=== PATIENT | male | born 1965 | race Caucasian/White ===

== ENCOUNTER 2017-09-13 11:36 | Emergency (ER) | payer OTHER ==
--- NOTE | 2017-09-13 12:55 | UC ---
Back Pain HPI - HPI Summary HPI Summary: Patient presents with complaints of severe right sided low back pain onset several days. He denies any injury or trauma. He states describes the pain as excruciating and radiates into the rectum with associated urinary urgency and almost incontinence. He denies any fever,chills, trauma, activity that might account for his pain. He denies constipation, dysuria, abnormal penile discharge. He does report recurrent cyst on the left testicle with some discomfort noted. He states he had a cyst removed in the past and thinks it is growing back. - History of Current Complaint Chief Complaint: UCBackPain Stated Complaint: BACK PAIN Time Seen by Provider: 09/13/17 12:32 Hx Obtained From: Patient Onset/Duration: Sudden Onset, Lasting Days Timing: Constant Severity Initially: Severe Severity Currently: Severe Back Pain: Is Discrete @ - right lower back. Character: Sharp, Throbbing Aggravating Factor(s): Movement, Lifting, Bending, Walking, Cough Alleviating Factor(s): Nothing Associated Signs And Symptoms: Positive: Bladder Incontinence Related History: Similar Episode Dx As - threw back out. - Risk Factors AAA Risk Factors: Negative TAD Risk Factors: Negative Cauda Equina Risk Factors: Bladder Dysfunction Epidural Abscess Risk Factors: Negative - Allergies/Home Medications Allergies/Adverse Reactions: Allergies Allergy/AdvReac Type Severity Reaction Status Date / Time No Known Allergies Allergy Verified 09/13/17 11:59 Home Medications: Home Medications NK [No Home Medications Reported] 09/13/17 [History Confirmed 09/13/17] PMH/Surg Hx/FS Hx/Imm Hx Previously Healthy: Yes - Surgical History Surgical History: Yes Surgery Procedure, Year, and Place: Hernia repair, back surgery - Family History Known Family History: Positive: None - Social History Occupation: Employed Full-time Alcohol Use: None Substance Use Type: None Smoking Status (MU): Heavy Every Day Tobacco Smoker Review of Systems Constitutional: Negative Skin: Negative Eyes: Negative ENT: Negative Respiratory: Negative Cardiovascular: Negative Gastrointestinal: Negative Genitourinary: Negative Motor: Negative Neurovascular: Negative Musculoskeletal: Other: Neurological: Negative Psychological: Negative All Other Systems Reviewed And Are Negative: Yes Physical Exam Triage Information Reviewed: Yes Appearance: Well-Appearing Vital Signs: Initial Vital Signs Temp 97.5 F 09/13/17 11:54 Pulse 65 09/13/17 11:54 Resp 18 09/13/17 11:54 Pulse Ox 100 09/13/17 11:54 Vital Signs Reviewed: Yes Eye Exam: Normal ENT Exam: Normal Dental Exam: Normal Neck exam: Normal Neck: Positive: 1 Respiratory Exam: Normal Cardiovascular Exam: Normal Abdominal Exam: Normal Musculoskeletal Exam: Normal Musculoskeletal: Positive: Other: - Back inspection, vertebrae are in good alignment with no step-offs or deformities. nontender midline on palpation. palpable pain to right of lumbar paraspinal processes. rom, guarded but without limitations. neuro, no deficits distally to touch. strength, equal bilaterally. 2+. vasc, no edema Posterior tib pulses 1+ bilaterally. patellar reflexes intact 2+. gait, heel-toe Neurological Exam: Normal Psychological Exam: Normal Skin Exam: Normal Back Pain Course/Dx - Course Course Of Treatment: Patient was referred to the ER stat. He was neuro-vasc intact while in the clinic. He preferred transfer in private vehicle. Report called to Yaneli that the patient would be arriving. - Differential Dx/Diagnosis Differential Diagnosis/HQI/PQRI: Other - back pain Provider Diagnoses: back pain Discharge - Discharge Plan Condition: Stable Disposition: HOME Patient Education Materials: Acute Low Back Pain (ED) Referrals: Javid Ortiz MD [Primary Care Provider] -
== END 2017-09-13 12:54 | disposition home or self-care (01) ==
LOC: UCEAST 11:36
DX: M54.5 Low back pain (principal); Z72.0 Tobacco use
CPT/HCPCS: 81003; 99211; G0463

== ENCOUNTER → 2017-09-13 13:15 | Emergency (ER) | payer OTHER ==
[~2017-09-13 13:15] MED LIST: Cyclobenzaprine TAB* 10 MG PO ONE; Dexamethasone IV* 4 MG/ML 1 ML (4 MG) IV SLOW PU ONE; Dexamethasone IV* 4 MG/ML 1 ML (4 MG) ONE; Dexamethasone IV* 8 MG in NS 0.9% 50 ML* 50 ML IVPB ONE; Iohexol 300* (CONTRAST) 10 ML SDV IV ONE; Morphine INJ* 10 MG/ML 1 ML CARPUJECT IV ONE; NS 0.9% 50 ML* 50 ML ONE
[2017-09-13 14:18] LABS: Hematocrit 47 % (42-52); Hemoglobin 15.6 g/dl (14.0-18.0); Mean Corpuscular HGB Conc 34 g/dl (31-36); Mean Corpuscular Hemoglobin 33 pg (27-31); Mean Corpuscular Volume 98 fL (80-94); Mean Platelet Volume 8 um3 (7.4-10.4); Red Blood Count 4.72 10^6/ul (4.0-5.4); Red Cell Distribution Width 14 % (10.5-15)
[2017-09-13 14:35] LABS: Albumin 4.2 g/dL (3.2-5.2); BUN/Creatinine Ratio 17.2 (8-20); C Reactive Protein 1.78 mg/L (< 5.00); Calcium 8.9 mg/dL (8.6-10.3); EGFR African American 102.9 (>60); Globulin 2.5 g/dL (2-4); Total Bilirubin 0.4 mg/dL (0.2-1.0); Total Protein 6.7 g/dL (6.4-8.9)
[2017-09-13 14:57] LABS: Erythrocyte Sed Rate 6 mm/Hr (0-20)
[2017-09-13 15:25] LABS: Potassium 4.5 mmol/L (3.5-5.0)
--- NOTE | 2017-09-13 15:34 | RAD ---
INDICATION: Low back pain. COMPARISON: There are no prior studies available for comparison. TECHNIQUE: Axial and sagittal T1 and T2 and coronal T2-weighted images of the lumbar spine were obtained. FINDINGS: The vertebra are in normal alignment. No fracture is seen. There is a small T1 and T2 hyperintense lesion in the L4 vertebral body measuring 7 mm in size most consistent with a small hemangioma. The conus medullaris is normal in shape and signal intensity. At the L2-L3 level there is a mild broad-based disc bulge. No significant spinal canal narrowing is present. There is very minimal bilateral neural foraminal narrowing. At the L3-L4 level there is no evidence for disc bulge or herniation. There are mild hypertrophic changes within the facet joints. No spinal canal or neural foraminal narrowing is seen. At the L4-L5 level there is a mild broad-based disc bulge and mild hypertrophic changes within the facet joints. No significant spinal canal or neural foraminal narrowing is seen. At the L5-S1 level there is a mild broad-based disc bulge and mild to moderate hypertrophic changes within the facet joints. No significant spinal canal narrowing is present. There is mild neural foraminal narrowing on the left side. IMPRESSION: MILD DEGENERATIVE DISC DISEASE AND FACET OSTEOARTHRITIS.
--- NOTE | 2017-09-13 18:39 | RAD ---
INDICATION: RIGHT lower back pain for 1.5 weeks. Previous hernia repair. COMPARISON: September 13, 2017 MRI. TECHNIQUE: Multidetector CT images were obtained from the lung bases to the ischial tuberosities with 111 mL Omnipaque 300 IV and oral contrast. Multiplanar reformation. REPORT: Mild bilateral dependent subsegmental atelectasis. Decreased density of normal size liver consistent with fatty infiltration. The gallbladder, pancreas, and spleen are unremarkable. Moderate hiatal hernia. No CT abnormality of the small bowel loops or retrocecal infra cecal appendix. Moderate colonic diverticulosis without findings of acute diverticulitis. Enteric contrast extends to the rectum. Negative for ascites, free air, or hernias. Normal adrenal glands. Subcentimeter probable cortical cyst at the upper pole of the RIGHT kidney. No suspicious renal lesions or hydronephrosis. Symmetric nephrograms and pyelograms. Unremarkable nondilated ureters and partially distended urinary bladder. Symmetric seminal vesicles. Negative for lymphadenopathy. Atherosclerotic plaque of normal diameter abdominal aorta and iliac arteries. Physiologic distention of the IVC. Negative for fracture or suspicious osseous lesions. Mild multilevel degenerative spondylosis as described in the MRI report of the same date. IMPRESSION: 1. Normal appendix documented. Colonic diverticulosis without findings of acute diverticulitis. Moderate hiatal hernia. 2. Negative for obstructive uropathy. 3. Negative for organomegaly or lymphadenopathy. 4. Fatty infiltration of the liver.
--- NOTE | 2017-09-13 20:56 | RAD ---
Indication: Palpable lump superior to the LEFT testes. Comparison: CT abdomen pelvis of the same date. Technique: Scrotal ultrasound. Report: Normal echotexture 4.7 x 2.3 x 3.7 cm RIGHT testicle with normal range vascularity. Unremarkable 1.5 x 0.9 cm RIGHT epididymis head. Physiologic small volume of RIGHT scrotal fluid. Negative for varicocele. 4.4 x 2.0 x 2.9 cm LEFT testicle is normal in echotexture and demonstrates normal range vascularity. Sharply circumscribed 0.5 x 0.3 x 0.5 cm anechoic testicular cyst without complex features. 3.3 x 2.0 cm LEFT epididymis head with normal range vascularity is remarkable for a sharply circumscribed 3.0 x 1.3 x 1.7 cm anechoic epididymal head cyst or spermatocele. Negative for hydrocele or varicocele. IMPRESSION: 1. No suspicious intratesticular lesions. 0.5 cm simple appearing LEFT testicular cyst. 2. 3.0 x 1.3 x 1.7 cm LEFT epididymal head cyst or spermatocele corresponds with the palpable lump. 3. No evidence for epididymoorchitis or testicular torsion.
[2017-09-13 21:20] VITALS: BP 152/94
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
== END | disposition home or self-care (01) ==
LOC: ED 13:15
DX: M47.9 Spondylosis, unspecified (principal); I10 Essential (primary) hypertension; M54.9 Dorsalgia, unspecified; R53.1 Weakness; N50.812 Left testicular pain; F17.210 Nicotine dependence, cigarettes, uncomplicated
CPT/HCPCS: 36415; 72148; 74177; 76870; 80053; 82270; 83605; 85025; 85652; 86140; 86618; 96365; 96375; 99283; A9270-GY; J1100; J2270; Q9967